=== PATIENT | male | born 1980 | race Two or more races ===

== ENCOUNTER → 2020-10-12 | Outpatient (CLI) | payer OTHER ==
[2015-04-16 12:00] VITALS: BP 157/93
== END ==
LOC: LAB 14:16
PROVIDERS: ATTEND Internal Medicine Pulmonary Disease
DX: R51.9 Headache, unspecified (principal); J02.9 Acute pharyngitis, unspecified; Z20.822 Contact with and (suspected) exposure to COVID-19
CPT/HCPCS: 87426; U0003; U0005